=== PATIENT | female | born 1940 | race Caucasian/White ===

== ENCOUNTER 2024-12-13 12:41 | Observation (INO) ==
[2024-12-13 13:07] LABS: BASOPHILS % (AUTO) 0.3 % (0.0-3.0); EOSINOPHILS # (AUTO) 0.1 K/ul (0.0-0.7); EOSINOPHILS % (AUTO) 0.5 % (0.0-7.0); HEMATOCRIT 32.1 % (37.0-47.0); HEMOGLOBIN 10.2 g/dl (12.0-16.0); IMMATURE GRANULOCYTE # (AUTO) 0.1 (0.0-1.0); IMMATURE GRANULOCYTE % (AUTO) 0.6 % (0.0-5.0); LYMPHOCYTES # (AUTO) 0.3 K/uL (0.60-3.4); LYMPHOCYTES % (AUTO) 2.7 (10.0-50.0); MEAN CORPUSCULAR HEMOGLOBIN 27.3 pg (27.0-31.0); MEAN CORPUSCULAR HGB CONC 31.8 (31.8-35.4); MEAN CORPUSCULAR VOLUME 86.1 fl (81.0-99.0); MONOCYTES # (AUTO) 0.4 K/uL (0.4-2.0); MONOCYTES % (AUTO) 3.6 (0-10); NEUTROPHILS # (AUTO) 9.5 K/ul (2.0-6.9); NEUTROPHILS % (AUTO) 92.3 % (42.2-75.2); PLATELET COUNT 311 10^3/uL (140-440); RDW COEFFICIENT OF VARIATION 16.7 % (11.6-14.8); RED BLOOD COUNT 3.73 10^6/ul (4.20-5.40); WHITE BLOOD COUNT 10.33 K/ul (4.6-10.2)
[2024-12-13 13:20] LABS: ALBUMIN 3.81 g/dL (3.5-5.0); ALKALINE PHOSPHATASE 68.5 U/L (53-141); BILIRUBIN,TOTAL 0.46 mg/dL (0.2-1.3); BLOOD UREA NITROGEN 15.6 mg/dL (7-17); CALCIUM 8.49 mg/dL (8.4-10.2); CARBON DIOXIDE 23.6 mmol/L (22-30.0); CHLORIDE 95.3 mmol/L (98-107); CREATININE 1.52 mg/dL (0.60-1.30); GLUCOSE 277.1 mg/dL (74-106); SODIUM 132.4 mmol/L (134.5-145); TOTAL PROTEIN 6.87 g/dL (6.3-8.2)
[2024-12-13 13:26] LABS: MOLECULAR FLU A POSITIVE BY NAAT (NEGATIVE); MOLECULAR FLU B NEGATIVE BY NAAT (NEGATIVE); RSV MOLECULAR NEGATIVE BY NAAT (NEGATIVE); SARS COV-2 RNA RAPID NAAT NEGATIVE (NEGATIVE)
[2024-12-13 13:27] LABS: ALANINE AMINOTRANSFERASE 22.2 U/L (0-35)
[2024-12-13 13:28] LABS: PARTIAL THROMBOPLASTIN TIME 27.3 SEC (23.9-40.0); PROTHROMBIN TIME 11.8 SEC (9.3-11.0)
[2024-12-13 13:29] LABS: POTASSIUM 2.61 mmol/L (3.5-5.1)
[2024-12-13 13:32] LABS: TROPONIN I 0.024 ng/ml (0.0000-0.120)
[2024-12-13] MEDS ORDERED: CARDIZEM INJ IVP STA (13:47)
--- NOTE | 2024-12-13 14:04 | ED.PDOC ---
General ED Provider: Dr. MCKAY COMBS DO Chief Complaint: Weakness Stated Complaint: 84-year-old female presents to the ER via EMS by request of her daughter he said that she had seemed like she is more weak lately. The patient states that she feels fine and she has no acute complaints. Denies headache, chest pain, shortness of breath, abdominal pain, vomiting, diarrhea, constipation, melena, medic easier, dysuria, urinary frequency. Time Seen by Provider: 12/13/24 12:42 Information Source: Patient and EMT Primary Care Provider: NIC DIAZ Nursing and Triage Documentation Reviewed and Agree: Yes What is Opioid Naive?: *Opioid Naive implies the patient is not already taking opioids or not chronically receiving opioids on a daily basis. *PRN dosing is not "usually" associated with tolerance. *Patients are at higher risk of over-sedation and aspiration. What is Opioid Tolerant?: *Opioid Tolerance implies less than the expected response to an opioid. *Acquired tolerance is defined by the patient taking 60mg of oral morphine daily (or equianalgesic dose of another opioid) for 1 week or more. *Often associated with chronic pain. *May take more than usual dose to achieve desired pain control. Review of Systems Review Of Systems Constitutional: Reports No symptoms All Other Systems: Reviewed and Negative Physical Exam Physical Exam Appearance: Reports Well-appearing, No pain distress and Well-nourished Eyes: Reports KALEB and EOMI ENT: Reports Nose normal and Oropharynx normal Neck: Supple Respiratory: Reports Airway patent, Breath sounds clear and Respirations nonlabored Cardiovascular: Reports Pulses normal, Irregular rhythm and Tachycardia GI/: Reports Soft and Nontender Musculoskeletal: Reports Normal strength and ROM intact Skin: Reports Warm, Dry and Normal color Neurological: Reports Sensation intact, Motor intact, Alert and Oriented Psychiatric: Reports Affect appropriate and Mood appropriate Interpretation EKG Interpretation EKG Interpretation By: ED Physician (Independent interpretation) Time of EKG #1: 13:00 Rate: Tachy Rhythm: Other Ectopy: None [place]: Left ST Segment: Normal Interpretation: Nonischemic EKG, chronic A-fib EKG Interpretation By: ED Physician (Independent interpretation) Time of EKG #2: 15:25 Rate: Normal (95) Rhythm: Other (A-fib) Ectopy: None [place]: Left ST Segment: Normal EKG Interpretation: Nonischemic EKG Radiology Interpretation Radiology Interpretation By: Radiologist Radiology Results: No acute changes Exam Interpreted: Portable CXR Re-Evaluation Re-Evaluation Additional Comments: 84-year-old female presents to the ER generalized weakness. She presents tachycardic with suspicious A-fib. Later after her daughter arrives, the daughter confirms that she has chronic A-fib. The patient denies headache chest pain or shortness of breath. She denies other constitutional symptoms but on laboratory workup given her age and risk factors, it is found that she has an elevated BNP that responds well to Lasix administration. She also has hypokalemia at 2.6 which I suspect is secondary to her Lasix use and this was repleted or started to be repleted orally with 40 mEq. I would expect this to raise her potassium by 4/10 up to 3. Since there is still a hypokalemia and given the patient's age and risk factors in general weakness, she may benefit from hospitalization. I gave a dose of amiodarone in the emergency department because the patient was also flu a positive and the tachycardia could be secondary to infection and I did not want to use specific rate controlling medications for an infectious etiology. I do not feel this patient is septic however and therefore septic workup was not pursued. Nonetheless, the patient remained stable in the emergency department and after several hours of monitoring and discussion with the patient and her daughter, the patient has elected to be admitted when she initially did not want to be admitted. I do think this would be of benefit and I spoke with the hospitalist service who is gracious to accept for admission. Course Course 12/13/24 12:59 12/13/24 12:59 Orders, Labs, Meds: Lab Review 12/13/24 12/13/24 12/13/24 12:53 12:59 13:31 WBC 10.33 H RBC 3.73 L Hgb 10.2 L Hct 32.1 L MCV 86.1 MCH 27.3 MCHC 31.8 RDW Coeff of Monique 16.7 H Plt Count 311 Immature Gran % (Auto) 0.6 Neut % (Auto) 92.3 H Lymph % (Auto) 2.7 L [place] % (Auto) 3.6 Eos % (Auto) 0.5 Baso % (Auto) 0.3 Neut # (Auto) 9.5 H Lymph # (Auto) 0.3 L [place] # (Auto) 0.4 Eos # (Auto) 0.1 Baso # (Auto) 0.0 Immature Gran # (Auto) 0.1 PT 11.8 H INR 1.14 APTT 27.3 Sodium 132.4 L Potassium 2.61 L* Chloride 95.3 L Carbon Dioxide 23.6 Anion Gap 16.11 BUN 15.6 Creatinine 1.52 H Estimated GFR (MDRD) 33.00 BUN/Creatinine Ratio 10.26 Glucose 277.1 H Calcium 8.49 Magnesium 0.97 L* Total Bilirubin 0.46 AST 28.0 ALT 22.2 Alkaline Phosphatase 68.5 Troponin I 0.024 NT-Pro-B Natriuret Pep 5600 H Total Protein 6.87 Albumin 3.81 Globulin 3.06 Albumin/Globulin Ratio 1.24 Influ A Molecular Assay Positive by naat H Influ B Molecular Assay Negative by naat RSV Antigen Negative by naat SARS CoV-2 RNA Rapid AGATA Negative Orders Category Date Time Status ADMIT OBSERVATION [PLACE PATIENT OBSERVATION] .TO ADMISSION 12/13/24 16:10 Active MEDSURG (MONITORED BED) EKG-(ED ONLY) Stat CARDIO 12/13/24 12:44 Completed EKG-(ED ONLY) Stat CARDIO 12/13/24 15:00 Completed TELEMETRY MONITORING TELE CARE 12/13/24 16:10 Active Glucose [ED ACCUCHECK ASSESSMENT] .ONCE EMERGENCY 12/13/24 12:44 Active CBC W/ AUTO DIFF Stat LAB 12/13/24 12:59 Completed CMP [COMPREHENSIVE METABOLIC PANEL] Stat LAB 12/13/24 12:59 Completed COVID [SARS COV-2 RNA RAPID AGATA] Stat LAB 12/13/24 12:53 Completed ED PROBNP [NT-PROBNP(ED)] Stat LAB 12/13/24 12:59 Completed FLU A & B MOLECULAR [FLU A/B MOLECULAR] Stat LAB 12/13/24 12:53 Completed MAGNESIUM Stat LAB 12/13/24 13:31 Completed PT WITH INR Stat LAB 12/13/24 12:59 Completed PTT [PARTIAL THROMBOPLASTIN TIME] Stat LAB 12/13/24 12:59 Completed RSV Stat LAB 12/13/24 12:53 Completed TROPONIN I Stat LAB 12/13/24 12:59 Completed URINALYSIS C & S IF INDICATED Stat LAB 12/13/24 15:23 Received Amiodarone HCl [Cordarone] Meds 12/13/24 13:48 Discontinued 150 mg IVP ONCE STA Furosemide [Lasix] Meds 12/13/24 13:45 Discontinued 60 mg IVP ONCE STA Magnesium Sulfate [Magnesium Sulfate 1 gm/2 ml Vial] Meds 12/13/24 13:31 Discontinued 1 gm IVP ONCE ONE Potassium Chloride [K-Dur] Meds 12/13/24 13:31 Discontinued 40 meq PO ONCE STA CHEST, 1V AP ONLY Stat RADS 12/13/24 12:44 Completed Medications Discontinued Medications Generic Name Dose Route Start Last Admin Trade Name Hema PRN Reason Stop Dose Admin Amiodarone HCl 150 mg 12/13/24 13:48 12/13/24 14:07 Amiodarone 150 Mg/3 Ml Sdv IVP 12/13/24 13:49 150 mg ONCE STA Administration Furosemide 60 mg 12/13/24 13:45 12/13/24 14:10 Furosemide Inj 100 Mg/10 Ml Vial IVP 12/13/24 13:46 60 mg ONCE STA Administration Magnesium Sulfate 1 gm 12/13/24 13:31 12/13/24 14:13 Magnesium Sulfate Vial 1 Gm/2 Ml Vial IVP 12/13/24 13:32 1 gm ONCE ONE Administration Potassium Chloride 40 meq 12/13/24 13:31 12/13/24 14:09 Potassium Chloride 20 Meq Tab PO 12/13/24 13:32 40 meq ONCE STA Administration Vital Signs: Temp Pulse Resp BP Pulse Ox 12/13/24 12:49 99.1 F 133 H 20 141/57 H 95 ERIK Risk Score ERIK Risk Score: Risk Score Odds of by 30D 0 0.1 (0.1-0.2) 1 0.3 (0.2-0.3) 2 0.4 (0.3-0.5) 3 0.7 (0.6-0.9) 4 1.2 (1.0-1.5) 5 2.2 (1.9-2.6) 6 3.0 (2.5-3.6) 7 4.8 (3.8-6.1) Discharge Plan Discharge Patient Disposition: PLACED OBSERVATION Discharge Problem: Weakness, Influenza, A-fib, Acute hypokalemia Prescriptions: No Action metformin 500 mg tablet 500 mg PO 2XD pravastatin 40 mg tablet 40 mg PO DAILY metoprolol succinate 50 mg tablet extended release 24 hr 50 mg PO DAILY levothyroxine 50 mcg tablet 50 mcg PO DAILY furosemide 20 mg tablet 20 mg PO DAILY duloxetine 60 mg capsule,delayed release(DR/EC) 60 mg PO DAILY clopidogrel 75 mg tablet 75 mg PO DAILY memantine 10 mg tablet 10 mg PO BID quetiapine 50 mg tablet 50 mg PO BEDTIME Did you review [place] SEDIMENTATIONIST for ALL controlled substances?: Not Applicable ED Provider: MCKAY COMBS Condition: Stable
[2024-12-13] MEDS: CORDARONE IVP STA (14:07)
[2024-12-13] MEDS: K-DUR PO STA (14:09)
[2024-12-13] MEDS: LASIX IVP STA (14:10)
[2024-12-13] MEDS: MAGNESIUM SULFATE 1 GM/2 ML VIAL IVP ONE (14:13)
--- NOTE | 2024-12-13 14:25 | DI ---
EXAM: CHEST RADIOGRAPH (1 VIEW) TECHNIQUE: Frontal Chest Radiograph. HISTORY: Chest pain, shortness of breath COMPARISON: None. FINDINGS: Lines, Tubes, Devices: None Lungs and Pleura: Linear densities in the left lower lung. Hilar prominence, nonspecific. No large pleural effusion or pneumothorax. Cardiac silhouette: Normal. Bones: No acute abnormality. IMPRESSION: Linear densities in the left lower lung and nonspecific hilar prominence. Correlate for atelectasis and / or scarring. If symptoms persist, consider follow-up imaging.
[2024-12-13 15:38] LABS: BILIRUBIN,URINE Negative (NEGATIVE); CLARITY,URINE Clear (CLEAR); COLOR,URINE Yellow (YELLOW); GLUCOSE, URINE (UA) Negative (NEGATIVE); KETONES,URINE Negative (NEGATIVE); LEUKOCYTE ESTERASE ,URINE Negative (NEGATIVE); NITRITE,URINE Negative (NEGATIVE); PROTEIN,URINE Negative (NEGATIVE); URINE, BLOOD Negative (NEGATIVE); UROBILINOGEN,URINE 0.2 (0.2)
[2024-12-13] MEDS ORDERED: TYLENOL PO PRN (16:16)
[2024-12-13] MEDS: HUMULIN R (10ML) SUBCUT PRN (18:14)
[2024-12-13] MEDS: POTASSIUM CHLORIDE 20 MEQ/100 ML PREMIX 40 MEQ/200 ML BAG IV ONE (18:16)
[2024-12-13 18:55] VITALS: BMI 26.2
[2024-12-13] MEDS: LOPRESSOR PO SCH (21:00)
[2024-12-13] MEDS: NAMENDA PO SCH (21:01)
[2024-12-13] MEDS: SEROQUEL PO SCH (21:01)
[2024-12-13] MEDS: POTASSIUM CHLORIDE 20 MEQ/100 ML PREMIX 20 MEQ/100 ML BAG IV ONE (21:08)
[2024-12-13 21:34] LABS: BLOOD UREA NITROGEN 15.8 mg/dL (7-17); CALCIUM 8.3 mg/dL (8.4-10.2); CARBON DIOXIDE 28.3 mmol/L (22-30.0); CHLORIDE 95.8 mmol/L (98-107); CREATININE 1.55 mg/dL (0.60-1.30); GLUCOSE 121.7 mg/dL (74-106); POTASSIUM 3.33 mmol/L (3.5-5.1); SODIUM 134.2 mmol/L (134.5-145)
[2024-12-13] MEDS: K-DUR PO ONE (22:02)
[2024-12-14] MEDS: SYNTHROID PO SCH (05:32)
[2024-12-14 05:46] LABS: BASOPHILS % (AUTO) 0.4 % (0.0-3.0); EOSINOPHILS % (AUTO) 0.3 % (0.0-7.0); HEMATOCRIT 30.2 % (37.0-47.0); HEMOGLOBIN 9.5 g/dl (12.0-16.0); IMMATURE GRANULOCYTE # (AUTO) 0.1 (0.0-1.0); IMMATURE GRANULOCYTE % (AUTO) 0.7 % (0.0-5.0); LYMPHOCYTES # (AUTO) 1.3 K/uL (0.60-3.4); LYMPHOCYTES % (AUTO) 16.6 (10.0-50.0); MEAN CORPUSCULAR HEMOGLOBIN 27.8 pg (27.0-31.0); MEAN CORPUSCULAR HGB CONC 31.5 (31.8-35.4); MEAN CORPUSCULAR VOLUME 88.3 fl (81.0-99.0); MONOCYTES # (AUTO) 0.7 K/uL (0.4-2.0); MONOCYTES % (AUTO) 8.8 (0-10); NEUTROPHILS # (AUTO) 5.5 K/ul (2.0-6.9); NEUTROPHILS % (AUTO) 73.2 % (42.2-75.2); PLATELET COUNT 281 10^3/uL (140-440); RDW COEFFICIENT OF VARIATION 17.4 % (11.6-14.8); RED BLOOD COUNT 3.42 10^6/ul (4.20-5.40); WHITE BLOOD COUNT 7.52 K/ul (4.6-10.2)
[2024-12-14 05:58] LABS: ALANINE AMINOTRANSFERASE 8.9 U/L (0-35); ALBUMIN 3.53 g/dL (3.5-5.0); BLOOD UREA NITROGEN 16.5 mg/dL (7-17); CARBON DIOXIDE 31.6 mmol/L (22-30.0); CHLORIDE 96.4 mmol/L (98-107); CREATININE 1.54 mg/dL (0.60-1.30); MAGNESIUM 1.46 mg/dL (1.6-2.3); POTASSIUM 3.23 mmol/L (3.5-5.1); SODIUM 134.7 mmol/L (134.5-145); TOTAL PROTEIN 6.59 g/dL (6.3-8.2)
[2024-12-14 06:00] LABS: ALKALINE PHOSPHATASE 63.8 U/L (53-141); CALCIUM 8.25 mg/dL (8.4-10.2)
[2024-12-14 06:01] LABS: BILIRUBIN,TOTAL < 0.10 mg/dL (0.2-1.3)
[2024-12-14] MEDS ORDERED: TOPROL XL PO SCH (09:00)
[2024-12-14] MEDS ORDERED: SYNTHROID PO SCH (09:00)
[2024-12-14] MEDS: PLAVIX PO SCH (09:00)
[2024-12-14] MEDS: CYMBALTA PO SCH (09:01)
[2024-12-14] MEDS: PRAVACHOL PO SCH (09:01)
[2024-12-14] MEDS: LASIX TAB PO SCH (09:02)
--- NOTE | 2024-12-14 10:48 | PCM ---
Date of Service Date Seen by Provider: 12/14/24 Time Seen by Provider: 10:48 Admit Day/Time Admission Date: 12/13/24 Reason for Admission Chief Complaint: WEAKNESS, FLU+, HYPOKALEMIA Hospital Provider [facility] Phys[facility] Primary Care Physician: NIC DIAZ History of Present Illness History of Present Illness: 84 year old female with a PMH of T2DM, HLD, Afib not on anticoagulation, anxiety/depression, dementia and others presented to the hospital on 12/13/24 with complaints of generalized weakness. The patient lives with her daughter, son-in-law, and grandson. Her daughter reports she was doing well on Saturday and Saturday began to have generalized weakness, but yesterday was unable to get her off the toilet. In the ER the patient was found to be in atrial fibrillation with a slightly elevated HR up to 95 and was given Amiodarone as well as hypokalemia with a potassium of 2.6 and magnesium of 0.9. She was given oral replacement. She was found to have influenza A and an elevated Cr to 1.52. and admitted to the hospitalist service. Her other labs were unremarkable at this time. Case Discussed With Case Discussed With: Patient's case was discussed with the ER Physicians [facility] Medical History (Updated 12/13/24 @ 19:03 by LAXMI LAY RN) Afib I48.91 - Unspecified atrial fibrillation (ICD-10) Diabetes E11.9 - Type 2 diabetes mellitus without complications (ICD-10) Dementia F03.90 - Unspecified dementia, unspecified severity, without behavioral disturbance, psychotic disturbance, mood disturbance, and anxiety (ICD-10) Allergies Allergies Allergy/AdvReac Type Severity Reaction Status Date / Time Penicillins AdvReac Verified 08/28/24 09:34 Current Medications Home Medications Acetaminophen (Acetaminophen 325 Mg Tablet) 650 mg PO Q4H PRN PRN Reason: Mild Pain Clopidogrel Bisulfate (Clopidogrel Bisulfate 75 Mg Tablet) 75 mg PO DAILY [facility] Last Admin: 12/14/24 09:00 Dose: 75 mg Duloxetine HCl (Duloxetine Hcl 30 Mg Capsule.Dr) 60 mg PO DAILY [facility] Last Admin: 12/14/24 09:01 Dose: 60 mg Enoxaparin Sodium (Enoxaparin Sodium 30 Mg/0.3 Ml Syr) 30 mg SUBCUT Q12HR [facility] Furosemide (Furosemide 20 Mg Tablet) 20 mg PO DAILY [facility] Last Admin: 12/14/24 09:02 Dose: 20 mg Insulin Human Regular (Insulin Regular, Human 100 Unit/Ml (10ml) Vial) 0 unit SUBCUT PRN PRN; Protocol PRN Reason: Hyperglycemia Last Admin: 12/13/24 18:14 Dose: 4 unit Levothyroxine Sodium (Levothyroxine Sodium 50 Mcg Tablet) 50 mcg PO DAILY@0630 [facility] Last Admin: 12/14/24 05:32 Dose: 50 mcg Memantine (Memantine Hcl 10 Mg Tablet) 10 mg PO BID [facility] Last Admin: 12/14/24 09:01 Dose: 10 mg Metoprolol Tartrate (Metoprolol Tartrate 50 Mg Tablet) 50 mg PO BID [facility] Last Admin: 12/14/24 09:00 Dose: 50 mg Oseltamivir Phosphate (Oseltamivir Phosphate 30 Mg Capsule) 30 mg PO BID [facility] Stop: 12/18/24 22:59 Pravastatin Sodium (Pravastatin Sodium 40 Mg Tablet) 40 mg PO DAILY [facility] Last Admin: 12/14/24 09:01 Dose: 40 mg Quetiapine Fumarate (Quetiapine Fumarate 25 Mg Tablet) 50 mg PO BEDTIME [facility] Last Admin: 12/13/24 21:01 Dose: 50 mg duloxetine 60 mg capsule,delayed release 60 mg PO DAILY 08/28/24 [History Confirmed 12/13/24] furosemide 20 mg tablet 20 mg PO DAILY 08/28/24 [History Confirmed 12/13/24] levothyroxine 50 mcg tablet 50 mcg PO DAILY 08/28/24 [History Confirmed 12/13/24] metformin 500 mg tablet 500 mg PO 2XD 08/28/24 [History Confirmed 12/13/24] metoprolol succinate 50 mg tablet,extended release 24 hr 50 mg PO DAILY 08/28/24 [History Confirmed 12/13/24] pravastatin 40 mg tablet 40 mg PO DAILY 08/28/24 [History Confirmed 12/13/24] clopidogrel 75 mg tablet 75 mg PO DAILY 12/13/24 [History Confirmed 12/13/24] memantine 10 mg tablet 10 mg PO BID 12/13/24 [History Confirmed 12/13/24] quetiapine 50 mg tablet 50 mg PO BEDTIME 12/13/24 [History Confirmed 12/13/24] Opioid Naive vs. Tolerant Does Patient Take Opioids?: No Is Patient Opioid Naive?: Yes What is Opioid Naive?: *Opioid Naive implies the patient is not already taking opioids or not chronically receiving opioids on a daily basis. *PRN dosing is not "usually" associated with tolerance. *Patients are at higher risk of over-sedation and aspiration. What is Opioid Tolerant?: *Opioid Tolerance implies less than the expected response to an opioid. *Acquired tolerance is defined by the patient taking 60mg of oral morphine daily (or equianalgesic dose of another opioid) for 1 week or more. *Often associated with chronic pain. *May take more than usual dose to achieve desired pain control. Review of Systems Constitutional: Reports No symptoms Physical examination Most Recent Vital Signs: Most Recent Vital Signs Temperature 97.5 F L 12/14/24 10:00 Temperature Source Temporal Artery Scan 12/14/24 10:00 Temperature Source Infrared 12/13/24 12:49 Pulse Rate 71 12/14/24 10:00 Respiratory Rate 21 H 12/14/24 10:00 Blood Pressure 125/65 12/14/24 10:00 Blood Pressure Mean 85 12/14/24 10:00 Blood Pressure Left Arm 136/67 12/13/24 16:42 Blood Pressure Location Right Arm 12/14/24 10:00 Blood Pressure Position Supine 12/14/24 10:00 O2 Sat by Pulse Oximetry 97 12/14/24 10:00 Oxygen Delivery Method Room Air 12/14/24 10:00 Height 5 ft 5 in 12/13/24 16:42 Weight 71.3 kg 12/13/24 16:42 Telemetry Type Bedside Monitor 12/14/24 07:00 Telemetry Monitoring Continues 12/14/24 07:00 Irregular Telemetry Rate (Approximate) 70-80 BPM 12/14/24 01:00 Telemetry Heart Rate 75 12/14/24 07:00 Telemetry SPO2 95 12/14/24 07:00 EKG IA Interval 0.16 12/14/24 07:00 EKG QRS Interval 0.06 12/14/24 07:00 Telemetry Strip Reading Sinus with PVCs 12/14/24 07:00 Appearance: Positive No Apparent Distress and Alert and Oriented x3 Skin: Negative Rashes HEENT: Positive Normocephalic and Atraumatic Chest/Lungs: Positive Symmetrical With Equal Breath Sounds and Clear to Auscultation Bilaterally Heart: Positive RRR GI/: Positive Soft Neurological: Positive Sensation Intact and Motor intact Psychiatric: Positive Oriented x4, Appropriate Mood and Appropriate Affect Labs This Visit Labs This Visit: Labs This Visit 12/13/24 12/13/24 12/13/24 12:53 12:59 13:31 WBC 10.33 H RBC 3.73 L Hgb 10.2 L Hct 32.1 L MCV 86.1 MCH 27.3 MCHC 31.8 RDW Coeff of Monique 16.7 H Plt Count 311 Immature Gran % (Auto) 0.6 Neut % (Auto) 92.3 H Lymph % (Auto) 2.7 L [place] % (Auto) 3.6 Eos % (Auto) 0.5 Baso % (Auto) 0.3 Neut # (Auto) 9.5 H Lymph # (Auto) 0.3 L [place] # (Auto) 0.4 Eos # (Auto) 0.1 Baso # (Auto) 0.0 Immature Gran # (Auto) 0.1 PT 11.8 H INR 1.14 APTT 27.3 Sodium 132.4 L Potassium 2.61 L* Chloride 95.3 L Carbon Dioxide 23.6 Anion Gap 16.11 BUN 15.6 Creatinine 1.52 H Estimated GFR (MDRD) 33.00 BUN/Creatinine Ratio 10.26 Glucose 277.1 H Calcium 8.49 Magnesium 0.97 L* Total Bilirubin 0.46 AST 28.0 ALT 22.2 Alkaline Phosphatase 68.5 Troponin I 0.024 NT-Pro-B Natriuret Pep 5600 H Total Protein 6.87 Albumin 3.81 Globulin 3.06 Albumin/Globulin Ratio 1.24 Urine Color Urine Clarity Urine pH Ur Specific [place] Urine Protein Urine Glucose (UA) Urine Ketones Urine Blood Urine Nitrite Urine Bilirubin Urine Urobilinogen Ur Leukocyte Esterase Influ A Molecular Assay Positive by naat H Influ B Molecular Assay Negative by naat RSV Antigen Negative by naat SARS CoV-2 RNA Rapid AGATA Negative 12/13/24 12/13/24 12/14/24 15:23 21:09 05:21 WBC 7.52 RBC 3.42 L Hgb 9.5 L Hct 30.2 L MCV 88.3 MCH 27.8 MCHC 31.5 L RDW Coeff of Monique 17.4 H Plt Count 281 Immature Gran % (Auto) 0.7 Neut % (Auto) 73.2 Lymph % (Auto) 16.6 [place] % (Auto) 8.8 Eos % (Auto) 0.3 Baso % (Auto) 0.4 Neut # (Auto) 5.5 Lymph # (Auto) 1.3 [place] # (Auto) 0.7 Eos # (Auto) 0.0 Baso # (Auto) 0.0 Immature Gran # (Auto) 0.1 PT INR APTT Sodium 134.2 L 134.7 Potassium 3.33 L 3.23 L Chloride 95.8 L 96.4 L Carbon Dioxide 28.3 31.6 H Anion Gap 13.43 9.93 BUN 15.8 16.5 Creatinine 1.55 H 1.54 H Estimated GFR (MDRD) 32.00 32.00 BUN/Creatinine Ratio 10.19 10.71 Glucose 121.7 H D 113.0 H Calcium 8.30 L 8.25 L Magnesium 1.46 L Total Bilirubin < 0.10 L AST 31.0 ALT 8.9 Alkaline Phosphatase 63.8 Troponin I NT-Pro-B Natriuret Pep Total Protein 6.59 Albumin 3.53 Globulin 3.06 Albumin/Globulin Ratio 1.15 Urine Color Yellow Urine Clarity Clear Urine pH 6.0 Ur Specific [place] 1.020 Urine Protein Negative Urine Glucose (UA) Negative Urine Ketones Negative Urine Blood Negative Urine Nitrite Negative Urine Bilirubin Negative Urine Urobilinogen 0.2 Ur Leukocyte Esterase Negative Influ A Molecular Assay Influ B Molecular Assay RSV Antigen SARS CoV-2 RNA Rapid AGATA Review Statement Review Statement: I have independently reviewed and interpreted the labs/EKGs/imaging that were ordered by the ER provider. I have reviewed all outside records that are available currently in our EMR including imaging/notes/labs from previous visits. Plan Plan: Influenza A Tamiflu as prescribed Supplemental oxygen as necessary Droplet precautions Acute hypokalemia Continue supplementation Monitor on post anesthesia care unit nurse with daily labs Generalized weakness PT/OT Atrial fibrillation Continue home medications Telemetry RVR resolved in the emergency room Type 2 diabetes mellitus Continue home medication Insulin sliding scale as needed Initiate hypoglycemic protocol as needed Diabetic diet Hypothyroidism Continue Synthroid Hyperlipidemia Continue home medication Anxiety/depression Continue home medication Dementia Continue home memantine DVT Prophylaxis:Lovenox Time Spent: Greater than 80 minutes spent with patient, 50% of the time spent with this patient was devoted to counseling and coordination of care. Disposition: Admission Admit to: Ivania Mackey PA-C Medications Medication Orders: Medications Ordered Category Date Time Status Acetaminophen [Tylenol] Meds 12/13/24 16:16 Active 650 mg PO Q4H PRN Clopidogrel Bisulfate [Plavix] Meds 12/14/24 09:00 Active 75 mg PO DAILY Duloxetine HCl [Cymbalta] Meds 12/14/24 09:00 Active 60 mg PO DAILY Furosemide [Lasix Tab] Meds 12/14/24 09:00 Active 20 mg PO DAILY Insulin Regular, Human [Humulin R (10Ml)] Meds 12/13/24 16:21 Active See Protocol SUBCUT PRN PRN Levothyroxine Sodium [Synthroid] Meds 12/14/24 06:30 Active 50 mcg PO DAILY@0630 Memantine HCl [Namenda] Meds 12/13/24 21:00 Active 10 mg PO BID Metoprolol Tartrate [Lopressor] Meds 12/13/24 21:00 Active 50 mg PO BID Pravastatin Sodium [Pravachol] Meds 12/14/24 09:00 Active 40 mg PO DAILY Quetiapine Fumarate [Seroquel] Meds 12/13/24 21:00 Active 50 mg PO BEDTIME
[2024-12-14] MEDS: TAMIFLU CAPSULE PO ONE (12:08)
[2024-12-14] MEDS: TAMIFLU CAPSULE PO SCH (20:42)
[2024-12-14] MEDS: LOVENOX SUBCUT SCH (20:42)
[2024-12-15 05:23] VITALS: PULSE 68
[2024-12-15 05:53] LABS: BASOPHILS % (AUTO) 0.3 % (0.0-3.0); EOSINOPHILS # (AUTO) 0.1 K/ul (0.0-0.7); HEMATOCRIT 30.5 % (37.0-47.0); HEMOGLOBIN 9.4 g/dl (12.0-16.0); IMMATURE GRANULOCYTE # (AUTO) 0.1 (0.0-1.0); IMMATURE GRANULOCYTE % (AUTO) 0.7 % (0.0-5.0); LYMPHOCYTES # (AUTO) 1.9 K/uL (0.60-3.4); LYMPHOCYTES % (AUTO) 27.3 (10.0-50.0); MEAN CORPUSCULAR HEMOGLOBIN 27.5 pg (27.0-31.0); MEAN CORPUSCULAR HGB CONC 30.8 (31.8-35.4); MEAN CORPUSCULAR VOLUME 89.2 fl (81.0-99.0); MONOCYTES # (AUTO) 0.7 K/uL (0.4-2.0); MONOCYTES % (AUTO) 9.7 (0-10); NEUTROPHILS # (AUTO) 4.3 K/ul (2.0-6.9); PLATELET COUNT 277 10^3/uL (140-440); RDW COEFFICIENT OF VARIATION 17.6 % (11.6-14.8); RED BLOOD COUNT 3.42 10^6/ul (4.20-5.40); WHITE BLOOD COUNT 7.03 K/ul (4.6-10.2)
[2024-12-15 06:07] LABS: ALANINE AMINOTRANSFERASE 10.5 U/L (0-35); ALBUMIN 3.27 g/dL (3.5-5.0); ALKALINE PHOSPHATASE 64.8 U/L (53-141); ASPARTATE AMINO TRANSFERASE 37.3 U/L (14-36); BLOOD UREA NITROGEN 18.7 mg/dL (7-17); CALCIUM 8.38 mg/dL (8.4-10.2); CHLORIDE 96.3 mmol/L (98-107); GLUCOSE 97.5 mg/dL (74-106); MAGNESIUM 1.45 mg/dL (1.6-2.3); POTASSIUM 4.24 mmol/L (3.5-5.1); SODIUM 133.4 mmol/L (134.5-145); TOTAL PROTEIN 6.19 g/dL (6.3-8.2)
[2024-12-15 06:29] LABS: BILIRUBIN,TOTAL < 0.10 mg/dL (0.2-1.3)
[2024-12-15] MEDS: MAGNESIUM SULF 2 G/50 ML BAG 2 GM/50 ML PIGGYBACK IV ONE (09:39)
[2024-12-15 10:03] VITALS: BP 112/52; RESP 18; TEMP 97.6
--- NOTE | 2024-12-15 12:11 | DCSUM ---
Admission Date Admission Date: 12/13/24 Discharge Date Discharge Date: 12/15/24 Admission Diagnosis Admission Diagnosis: Influenza A Acute hypokalemia Discharge Diagnosis Discharge Diagnosis: Influenza A Acute hypokalemia - resolved Hypomagnesemia - improved Atrial fibrillation, chronic Type 2 diabetes mellitus Hypothyroidism Hyperlipidemia Dementia Hospital Provider Hospital Provider: MYAH AGUAYO PA-C, [facility] Primary Care Physician Primary Care Physician: NIC DIAZ Summary of History and Physical Summary of History and Physical: 84 year old female with a PMH of T2DM, HLD, Afib not on anticoagulation, anxiety/depression, dementia presented to the hospital on 12/13/24 with complaints of generalized weakness. The patient lives with her daughter, son-in-law, and grandson. Her daughter reports she was doing well on Saturday and Saturday began to have generalized weakness, but yesterday was unable to get her off the toilet. In the ER the patient was found to be in atrial fibrillation with a slightly elevated HR up to 95 and was given Amiodarone as well as hypokalemia with a potassium of 2.6 and magnesium of 0.9. She was given oral replacement. She was found to have influenza A and an elevated Cr to 1.52. and admitted to the hospitalist service. Her other labs were unremarkable at this time. Hospital Course Subjective: Patient treated with tamiflu. Potassium and mag replaced. She is on RA. She is feeling at her baseline and ready to go home. Mag improved from 0.9 to 1.4. Given 2 more gm of mag prior to discharge. She worked with therapy and did well. F/u with pcp. Discharged with remainder of tamiflu. Red flags on when to return to ER discussed. Assumed patient care today, day of discharge. After reviewing limited access to [facility], it seems her PCP Dr. Diaz has been prescribing eliquis, was diagnosed with a fib back in August. No plavix noted on med list. Will have patient continue her home meds as prescribed by Dr. Diaz. Appearance: Pleasant, No Apparent Distress and Alert HEENT: MMM CVS: Other (RRR) Abdomen: Soft, Non-Tender and No Distention Respiratory: No Accessory Muscle Use Extremities: No Edema Vital Signs: Most Recent Vital Signs Temperature 97.6 F 12/15/24 10:00 Temperature Source Tympanic 12/15/24 10:00 Temperature Source Infrared 12/13/24 12:49 Pulse Rate 68 12/15/24 10:00 Respiratory Rate 18 12/15/24 10:00 Blood Pressure 112/52 L 12/15/24 10:00 Blood Pressure Mean 72 12/15/24 10:00 Blood Pressure Left Arm 136/67 12/13/24 16:42 Blood Pressure Location Right Arm 12/15/24 10:00 Blood Pressure Position Sitting 12/15/24 10:00 O2 Sat by Pulse Oximetry 96 12/15/24 10:00 Oxygen Delivery Method Room Air 12/15/24 12:00 Height 5 ft 5 in 12/15/24 10:05 Weight 71.3 kg 12/15/24 10:05 Telemetry Type Remote Telemetry 12/15/24 07:00 Telemetry Monitoring Continues 12/15/24 07:00 Irregular Telemetry Rate (Approximate) 70-80 BPM 12/14/24 01:00 Telemetry Heart Rate 64 12/15/24 07:00 Telemetry SPO2 96 12/15/24 07:00 EKG NH Interval 0.16 12/15/24 07:00 EKG QRS Interval 0.06 12/15/24 07:00 Telemetry Strip Reading SR with PACs 12/15/24 07:00 Imaging: EXAM: CHEST RADIOGRAPH (1 VIEW) TECHNIQUE: Frontal Chest Radiograph. HISTORY: Chest pain, shortness of breath COMPARISON: None. FINDINGS: Lines, Tubes, Devices: None Lungs and Pleura: Linear densities in the left lower lung. Hilar prominence, nonspecific. No large pleural effusion or pneumothorax. Cardiac silhouette: Normal. Bones: No acute abnormality. IMPRESSION: Linear densities in the left lower lung and nonspecific hilar prominence. Correlate for atelectasis and / or scarring. If symptoms persist, consider follow-up imaging. Lab Results Last 24 Hours: 12/15/24 05:40 WBC 7.03 RBC 3.42 L Hgb 9.4 L Hct 30.5 L MCV 89.2 MCH 27.5 MCHC 30.8 L RDW Coeff of Monique 17.6 H Plt Count 277 Immature Gran % (Auto) 0.7 Neut % (Auto) 61.0 Lymph % (Auto) 27.3 Darke % (Auto) 9.7 Eos % (Auto) 1.0 Baso % (Auto) 0.3 Neut # (Auto) 4.3 Lymph # (Auto) 1.9 Darke # (Auto) 0.7 Eos # (Auto) 0.1 Baso # (Auto) 0.0 Immature Gran # (Auto) 0.1 Sodium 133.4 L Potassium 4.24 Chloride 96.3 L Carbon Dioxide 31.0 H Anion Gap 10.34 BUN 18.7 H Creatinine 1.40 H Estimated GFR (MDRD) 36.00 BUN/Creatinine Ratio 13.35 Glucose 97.5 Calcium 8.38 L Magnesium 1.45 L Total Bilirubin < 0.10 L AST 37.3 H ALT 10.5 Alkaline Phosphatase 64.8 Total Protein 6.19 L Albumin 3.27 L Globulin 2.92 Albumin/Globulin Ratio 1.11 Discharge Instructions Discharge Planning: Discharge Planning > [address] Tin Melton. Discharge Plan Discharge Discharge Orders: Discharge Patient (ONCE); Ordered 12/15/24 Ordered By: MYAH AGUAYO Activity Restrictions/Additional Instructions: DISCHARGE TO HOME DX: INFLUENZA PHARMACY: [facility] YOU'VE BEEN PRESCRIBED TAMIFLU FOR THE FLU RETURN WITH WORSENING SYMPTOMS Patient Disposition: HOME SELF-CARE Prescriptions: New oseltamivir [Tamiflu] 30 mg Capsule 30 mg PO BID 4 Days Qty: 8 0RF Continued metformin 500 mg tablet 500 mg PO 2XD pravastatin 40 mg tablet 40 mg PO DAILY metoprolol succinate 50 mg tablet extended release 24 hr 50 mg PO DAILY levothyroxine 50 mcg tablet 50 mcg PO DAILY furosemide 20 mg tablet 20 mg PO DAILY duloxetine 60 mg capsule,delayed release(DR/EC) 60 mg PO DAILY clopidogrel 75 mg tablet 75 mg PO DAILY memantine 10 mg tablet 10 mg PO BID quetiapine 50 mg tablet 50 mg PO BEDTIME Did you review [place] [employer]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
== END 2024-12-15 13:55 | disposition home or self-care (01) ==
LOC: SCU 12:41 → ED 12:41 → SCU 16:48
PROVIDERS: ADMIT Hospitalist; ATTEND Physician Assistant
DX: R06.02 Shortness of breath; R07.9 Chest pain, unspecified; F03.90 Unspecified dementia, unspecified severity, without behavioral disturbance, psychotic disturbance, mood disturbance, and anxiety; E78.5 Hyperlipidemia, unspecified; I48.91 Unspecified atrial fibrillation; E83.42 Hypomagnesemia; Z79.899 Other long term (current) drug therapy; J11.1 Influenza due to unidentified influenza virus with other respiratory manifestations; M62.81 Muscle weakness (generalized); E11.9 Type 2 diabetes mellitus without complications; E03.9 Hypothyroidism, unspecified; Z51.81 Encounter for therapeutic drug level monitoring; Z79.84 Long term (current) use of oral hypoglycemic drugs; E87.6 Hypokalemia; Z20.822 Contact with and (suspected) exposure to COVID-19